=== PATIENT | male | born 1960 | race Caucasian/White ===

== ENCOUNTER 2017-01-16 20:06 | Inpatient (IN) | payer BC ==
[~2017-01-16] VITALS: Ht 180.3 cm; Wt 129.6 kg
--- NOTE | ~2017-01-16 | HEMODYNAMI ---
PATIENT:SHEYLA PARKER MEDICAL RECORD: [id number] : 60 LOCATION[facility] [id number] ADMISSION DATE: 01/16/17 Generatedon:01/19/20179:50 Patient name: SHEYLA PARKER Patient #: [id number] SSN: : 1960 Date of study: 01/19/2017 Page: Of Hemodynamic Procedure Report Patient Data Patient Demographics Procedure consent was obtained First Name: SHEYLA Gender: Male Last Name: KEITH : 1960 Middle Initial: A Age: 56 year(s) Patient #: [id number] Race: Unknown Additional ID: [id number] Contact details [address]: [address] [place] [address] State: [place] City: [place] Zip code: [address] Past Medical History Allergies Allergen Reaction Date Comments Reported Aspirin 01/19/2017 NSAIDs 01/19/2017 Penicillins 01/19/2017 Admission Admission Data Admission Date: 01/16/2017 Admission Time: 22:34 Room #: D.2123 Height (in.): 71 BSA: 2.43 (m2) Height (cm.): 180.34 BMI: 39.05 (kg/m2) Weight (lbs.): 279.99 Weight (kg.): 127 Lab Results Lab Result Date: 01/19/2017 Lab Result Time: 6:30 Biochemistry Name Units Result Min Max CK-MB ng/ml 3.2 --(---*)-- 0 3.6 Troponin l ng/ml 0.017 --(-*--)-- 0 0.06 Procedure Procedure Types Cath Procedure Diagnostic Procedure C [facility] w/Coronaries Miscellaneous Procedures Moderate Sedation up to 15 minutes Procedure Description Procedure Date Procedure Date: 01/19/2017 Procedure Start Time: 9:39 Procedure End Time: 9:47 Procedure Staff Name Function Saran Hale MD Performing Physician Kenji Cruz RT Scrub Tameka Carmichael RN Nurse Scott Marcos RT Monitor Procedure Data Cath Procedure Fluoroscopy Diagnostic fluoroscopy Total fluoroscopy Time: 1.8 time: 1.8 min min Diagnostic fluoroscopy Total fluoroscopy dose: 708 dose: 708 mGy mGy Contrast Material Contrast Material Type Amount (ml) Isovue 300 54 Entry Location Entry Primary Successful Side Size Upsize Upsize Entry Closure [place] ccessful Closure Location (Fr) 1 (Fr) 2 (Fr) Remarks Device Remarks Radial Right 6 Fr Mechanical artery Short Compression Estimated blood loss: 10 ml Diagnostic catheters Device Type Used For End Catheter Placement Diagnostic Terumo 5Fr Procedure [place] 110cm catheter Procedure Complications No complications Procedure Medications Medication Administration Route Dosage Oxygen NC 2 l/min Heparin Flush Bag added to field 2 bags (1000units/500ml NS) Lidocaine 2% added to field 20 Radial Cocktail added to field 1 syringe (Verapomil 2mg/Nitro 400mcg/Heparin 1500units) Versed I.V. 1 mg Fentanyl I.V. 50 mcg Radial Cocktail I.A. 1 syringe (Verapomil 2mg/Nitro 400mcg/Heparin 1500units) Versed I.V. 1 mg Fentanyl I.V. 50 mcg Versed I.V. 1 mg Fentanyl I.V. 50 mcg Versed I.V. 1 mg Fentanyl I.V. 50 mcg Hemodynamics Rest BSA: 2.43 (m2) HGB: 17.7 (g/dl) O2 Consumption: Estimated: 299.92 (ml/min) O2 Co nsumption indexed: Estimated:123.42 (ml/min/m) Heart Rate: 84 (bpm) Pressure Samples Time Site Value (mmHg) Purpose Heart Use Rate(bpm) 9:42 AO 108/89(99) Snapshot 90 Snapshots Pre Cath Intra NCS Post Cath Vital Signs Time Heart Resp SPO2 NIBP (mmHg) Rhythm Pain Sedation Rate (ipm) (%) Status Level (bpm) 9:20:28 95 14 98 144/97(126) NSR 0 (11) 10(A) , No pain 9:24:48 95 18 98 139/105(116) NSR 0 (11) 10(A) , No pain 9:29:06 92 18 95 129/99(119) NSR 0 (11) 10(A) , No pain 9:33:20 90 19 99 127/92(114) NSR 0 (11) 10(A) , No pain 9:37:39 90 19 98 144/81(127) NSR 0 (11) 10(A) , No pain 9:42:37 102 11 98 Measuring NSR 0 (11) 10(A) , No pain 9:42:52 90 22 97 111/76(87) NSR 0 (11) 10(A) , No pain 9:46:58 91 18 89 116/95(100) NSR 0 (11) 10(A) , No pain Medications Time Medication Route Dose Verified Delivered Reason Notes E ffectiveness by by 9:21:42 Oxygen NC 2 l/min Saran Tameka Per eGoffrey Carmichael RN physician 9:21:50 Heparin Flush added 2 bags Saran Noonan used for Bag to Geoffrey Hale MD procedure (1000units/500ml field NS) 9:21:56 Lidocaine 2% added 20ml Saran Saran used for to vial Geoffrey Hale MD procedure field 9:22:04 Radial Cocktail added 1 Saran Saran used for (Verapomil to syringe Geoffrey Hale MD procedure 2mg/Nitro field 400mcg/Heparin 1500units) 9:38:03 Versed I.V. 1 mg Saran Tameka for sedation Geoffrey Carmichael RN 9:38:08 Fentanyl I.V. 50 mcg Saran Tameka for sedation Geoffrey Carmichael RN 9:40:13 Versed I.V. 1 mg Saran Tameka for sedation Geoffrey Carmichael RN 9:40:21 Fentanyl I.V. 50 mcg Saran Tameka for sedation Geoffrey Carmichael RN 9:41:08 Radial Cocktail I.A. 1 Saran Saran for (Verapomil syringe Geoffrey Hale MD vasodilation 2mg/Nitro 400mcg/Heparin 1500units) 9:42:01 Fentanyl I.V. 50 mcg Saran Tameka for sedation Geoffrey Carmichael RN 9:42:01 Versed I.V. 1 mg Saran Tameka for sedation Geoffrey Carmichael RN 9:44:00 Versed I.V. 1 mg Saran Tameka for sedation Geoffrey Carmichael RN 9:44:03 Fentanyl I.V. 50 mcg Saran Tameka for sedation Geoffrey Carmichael RN Procedure Log Time Note 8:45:46 Scott Marcos RT(R) sent for patient. Start room use. 8:53:34 Lab Result : BUN 15 mg/dl 8:53:35 Lab Result : Hemoglobin 17.7 g/dl 8:53:35 Lab Result : Creatinine 1.2 mg/dl 8:54:40 ACC Patient presents with Unstable Angina CCS Anginal Class 3--Marked limitation of physical activity, angina occurs with ordinary activity.. 8:54:44 Diagnostic Cath status Urgent 8:55:11 Time tracking: Regular hours 8:55:19 Plan of Care:Hemodynamics will remain stable., Cardiac rhythm will remain stable., Comfort level will be maintained., Respiratory function will remain adequate., Patient/ family verbilizes understanding of procedure., Procedure tolerated without complication., Recovers from procedure without complications.. 8:55:34 Lab results completed and on chart. 8:57:13 Lab Result : CK-MB 3.2 ng/ml 8:57:13 Lab Result : Troponin l 0.017 ng/ml 9:08:20 Patient received from PCU to [facility] 2 Alert and oriented. Tansferred to table in Supine position. 9:08:21 Warm blankets applied, and galina hugger turned on for patient comfort. 9:08:22 Correct patient and procedure confirmed by team. 9:08:23 Signed procedure consent form obtained from patient. 9:08:24 ECG and BP/O2 sat monitors applied to patient. 9:19:18 Vital chart was started 9:21:42 Oxygen 2 l/min NC was administered by Tameka Carmichael RN; Per physician; 9:21:50 Heparin Flush Bag (1000units/500ml NS) 2 bags added to field was administered by Saran Hale MD; used for procedure; 9:21:56 Lidocaine 2% 20ml vial added to field was administered by Saran Hale MD; used for procedure; 9:22:04 Radial Cocktail (Verapomil 2mg/Nitro 400mcg/Heparin 1500units) 1 syringe added to field was administered by Saran Hale MD; used for procedure; 9:28:41 Baseline sample Acquired. 9:28:46 Rhythm: sinus rhythm 9:28:51 Full Disclosure recording started 9:29:00 H&P Date Dictated: 01/16/2017 Within 30 days and on chart.. 9:29:01 Pre-procedure instructions explained to patient. 9:29:02 Pre-op teaching completed and patient verbalized understanding. 9:29:04 Family in patients room. 9:29:05 Patient NPO since Midnight. 9:29:07 Is the patient allergic to Iodine/contrast media? No. 9:29:12 Is patient on blood thinner?No 9:30:00 Pt was started on Xarelto on Wednesday 01/17, however that it was held due to scheduled heart cath. 9:30:02 Patient diabetic? Yes. 9:30:03 If diabetic: On Metformin? No 9:30:06 Previous problem with sedation/anesthesia? No ? 9:30:07 Snore? Yes 9:30:08 Sleep apnea? Yes 9:30:11 Deviated septum? No 9:30:11 Opens mouth fully? Yes 9:30:12 Sticks out tongue? Yes 9:30:14 Airway obstruction? No ? 9:30:16 Dentures? No ? 9:30:19 Pre procedure: right dorsailis pedis pulse 1+ Palpable, but thready & weak; easily obliterated 9:30:21 Modified Daniel's test Ulnar < 7 seconds 9:30:24 Patient pain scale 0/10 ?. 9:30:47 IV patent on arrival in left forearm with 0.9% NaCl at KVO. 9:31:37 Pt's abdomen was taped back for groin access if needed. 9:31:42 Right Radial & Right Groin area was prepped with chlora-prep and draped in sterile fashion 9:31:43 Alarms reviewed by R. N. 9:31:43 Sharps counted by scrub and verified by R.N. 9:33:28 Zero performed for pressure channel P1 9:34:01 Use device set Radial Dx 9:34:03 Tegaderm 4 x 4 opened to sterile field. 9:34:04 Acist Hand Control opened to sterile field. 9:34:04 Acist Manifold opened to sterile field. 9:34:06 Acist Syringe opened to sterile field. 9:34:06 Medline Cath Pack opened to sterile field. 9:34:06 Bag Decanter opened to sterile field. 9:34:07 Terumo 6Fr Slender Glidesheath opened to sterile field. 9:34:07 St Edy 260cm J .035 wire opened to sterile field. 9:34:08 MBrace Wrist Support opened to sterile field. 9:34:15 Patient Weight : 127 kg 9:34:31 Patient Height : 180.34 cm 9:37:39 --------ALL STOP TIME OUT------ 9:37:40 Final Timeout: patient, procedure, and site verified with staff and physician. All members of the team are in agreement. 9:37:42 Right Radial & Right Groin site verified by team. 9:37:44 Physical assessment completed. ASA score P 2 - A patient with mild systemic disease as per Saran Hale MD. 9:37:47 Sedation plan: IV Moderate Sedation Versed, Fentanyl 9:38:03 Versed 1 mg I.V. was administered by Tameka Carmichael RN; for sedation; :38:08 Fentanyl 50 mcg I.V. was administered by Tameka Carmichael RN; for sedation; 9:39:14 Procedure started. 9:39:18 Local anesthetic to right radial artery with Lidocaine 2% by Saran Hale MD.INITIAL ACCESS ONLY 9:39:42 A 6 Fr Short sheath was inserted into the Right Radial artery 9:40:13 Versed 1 mg I.V. was administered by Tameka Carmichael RN; for sedation; 9:40:21 Fentanyl 50 mcg I.V. was administered by Tameka Carmichael RN; for sedation; 9:41:08 Radial Cocktail (Verapomil 2mg/Nitro 400mcg/Heparin 1500units) 1 syringe I.A. was administered by Saran Hale MD; for vasodilation; 9:41:14 A Diagnostic Terumo 5Fr [place] 110cm catheter was advanced over the wire and used for Procedure. 9:42:01 Fentanyl 50 mcg I.V. was administered by Tameka Carmichael RN; for sedation; 9:42:01 Versed 1 mg I.V. was administered by Tameka Carmichael RN; for sedation; 9:42:05 Patient allergic to Aspirin 9:42:12 Patient allergic to NSAIDs 9:42:17 Patient allergic to Penicillins 9:42:22 LV angiography performed. 9:42:23 LV gram done using FERRERA 9:42:37 EF : 50 % 9:42:40 Injector settings: Ml/sec: 7, Volume: 15, 9:42:51 LCA angiography performed. 9:44:00 Versed 1 mg I.V. was administered by Tameka Carmichael RN; for sedation; 9:44:01 RCA angiography performed. 9:44:03 Fentanyl 50 mcg I.V. was administered by Tameka Carmichael RN; for sedation; 9:44:08 Catheter removed. 9:44:29 Terumo TR Band Large opened to sterile field. 9:44:41 Sheath removed intact; hemostasis achieved with Mechanical Compression to the Right Radial artery. 9:44:45 Procedure ended.(Physican Out) 9:45:14 Fluoroscopy time 01.80 minutes. 9:45:19 Flurop Dose total: 708 9:45:19 Fluoroscopy dose: 708 mGy 9:45:28 Contrast amount:Isovue 300 54ml. 9:45:30 Sharps counted by scrub and verified by R.N. 9:45:32 TR band inflated with 12cc of air. 9:45:33 Insertion/operative site no bleeding no hematoma. 9:45:35 Post Procedure Pulses reassessed and unchanged 9:45:37 Post-procedure physical assessment completed. ASA score P 2 - A patient with mild systemic disease as per Saran Hale MD. 9:45:40 Post procedure rhythm: unchanged. 9:45:42 Estimated blood loss: 10 ml 9:45:44 Post procedure instruction explained to patient.Patient verbalizes understanding. 9:45:44 Patient needs reinforcement of post procedure teaching. 9:45:52 Procedure type changed to Cath procedure, Diagnostic procedure, LHC, LHC w/Coronaries, Miscellaneous Procedures, Moderate Sedation up to 15 minutes 9:45:56 Procedure Complication : No complications 9:46:15 Procedure and supply charges have been captured, reviewed, submitted and are correct. 9:47:31 Vital chart was stopped 9:47:31 See physician's report for complete and final results. 9:47:33 Report given to PCU. 9:47:36 Patient transfered to PCU with Bed. 9:47:38 Procedure ended. 9:47:38 Full Disclosure recording stopped 9:50:02 End room use (Document Last) Device Usage Item Name Manufacture Quantity Catalog Hospital Part Current Minimal Lot# / Number Charge Number Stock Stock Serial# Code Tegaderm 4 1 [id number] 5 x 4 Acist Hand Acist 1 24845 358767 823040 116374 5 Control [employer] Inc Acist Acist 1 74696 665970 298007 141340 5 Manifold Medical Systems Inc Acist Acist 1 66370 234884 073712 994153 20 Syringe Medical Systems Inc Medline Cardinal 1 [id number] 706679 16779 466496 5 Cath Pack Health Bag Microtek 1 2002S 902109 27232 520364 5 Decanter Medical Inc. Terumo 6Fr Terumo 1 [id number] 558679 923356 550562 [address] St Edy 1 275103 453824 698306 767428 30 260cm J .035 wire MBrace Advanced 1 [id number] 255645 47474 768462 5 Wrist Vascular Support Dynamics Diagnostic Terumo 1 00-7059 472409 732775 339148 5 Terumo 5Fr [place] 110cm catheter Terumo TR Terumo 1 [id number] 441426 597470 961082 40 Band Large Signature Audit Lamoni Stage Time Signature Unsigned Intra-Procedure 01/19/2017 Scott Marcos 9:50:21 AM RT(R) Signatures Monitor : Scott Marcos RT Signature : Date : Time : [facility] [address] [place] [address]
[2017-01-16 21:01] LABS: BASOPHILS 0.4 % (0-2); EOSINOPHILS 3.8 % (0-7); HEMATOCRIT 53.5 % (42.0-54.0); HEMOGLOBIN 18.7 g/dL (13.5-17.5); IMMATURE GRANULOCYTES 0.5 % (0-5); LYMPHOCYTES 20.4 % (15-50); MCH 30.6 pg (26.0-34.0); MCV 87.4 fL (80.0-100.0); MONOCYTES 11.9 % (2-11); PLATELET COUNT 273 10x3/uL (130-400); RBC 6.12 10x6/uL (4.20-6.10); RDW 14.5 % (11.5-14.5); WBC 12.7 10x3/uL (4.8-10.8)
[2017-01-16 21:11] LABS: APTT 34.9 SECONDS (22.8-39.4); INR 1.02 (0.85-1.17); PROTIME 13.2 SECONDS (11.6-15.0)
[2017-01-16 21:17] LABS: ALBUMIN 3.8 g/dL (3.4-5.0); ALKALINE PHOSPHATASE 61 U/L (46-116); ALT (SGPT) 40 U/L (10-68); BILIRUBIN - TOTAL 0.73 mg/dL (0.2-1.3); CALC OSMOLALITY 281 mosm/kg (275-300); CALCIUM 9.1 mg/dL (8.5-10.1); CARBON DIOXIDE 29.1 mmol/L (21.0-32.0); CHLORIDE - SERUM 103 mmol/L (98-107); CREATININE - SERUM 1.2 mg/dL (0.6-1.3); GLUCOSE 84 mg/dL (74-106); POTASSIUM - SERUM 3.7 mmol/L (3.5-5.1); PROTEIN - SERUM 7.2 g/dL (6.4-8.2); SODIUM 142 mmol/L (136-145); UREA NITROGEN 12 mg/dL (7-18); eGFR NON AFRICAN AMERICAN 66 mL/min (90-120)
[2017-01-16 21:28] LABS: CKMB 7.6 U/L (0.0-3.6); CREATINE KINASE 287 UL (21-232); TROPONIN-I < 0.017 ng/mL (0.000-0.060)
[2017-01-16] MEDS ORDERED: BENICAR HCT 40-1 TA1 PO (23:32)
[2017-01-16] MEDS ORDERED: TOPROL XL100 MG PO (23:32)
[2017-01-16] MEDS ORDERED: ZETIA10 MG PO (23:33)
[2017-01-16 23:35] VITALS: BP 136/92; Ht 180.3 cm; Wt 129.6 kg
--- NOTE | 2017-01-16 23:58 | NUR ---
ASSESSMENT COMPLETE WITH TELEMETRY APPLIED READING OF UCAF AT 153. SECOND IV STARTED TO THE LEFT HAND WITH 20 GA FOR IV ANTIOBIOTICS. CARDIZAM CONTINUES TO INFUSE AT 10 CC/HR TO IV IN THE L/ARM
[2017-01-17] VITALS (7 sets, daily range): BP systolic 108–136; BP diastolic 56–92
--- NOTE | 2017-01-17 00:14 | NUR ---
0014 NOTIFIED OFFICE MACHINERY OR EQUIPMENT INSTALLER OF NEED TO PULL MEDICATION OF LOVENOX AND ROCEPHIN. ALLERGY NOTED TO PCN. HOUSE SUP TO GO BACK TO ER AND VERIFY WITH DOCTOR
[2017-01-17 02:29] LABS: APPEARANCE CLEAR (CLEAR); BILIRUBIN NEGATIVE (NEGATIVE); COLOR DK YELLOW (YELLOW); GLUCOSE NEGATIVE (NEGATIVE); KETONE NEGATIVE (NEGATIVE); LEUKOCYTE ESTERASE NEGATIVE (NEGATIVE); NITRITE NEGATIVE (NEGATIVE); PROTEIN NEGATIVE (NEGATIVE); SPECIFIC GRAVITY 1.025 (1.005-1.020); UROBILINOGEN NORMAL (NORMAL)
--- NOTE | 2017-01-17 02:34 | NUR ---
NOTIFIED BY RECREATION ATTENDANT THE ER DOCTOR STATED HOLD THE ROCHEPHIN DUE TO ALLERGY
[2017-01-17 04:35] LABS: BASOPHILS 0.4 % (0-2); EOSINOPHILS 4.3 % (0-7); HEMATOCRIT 50.6 % (42.0-54.0); HEMOGLOBIN 17.7 g/dL (13.5-17.5); IMMATURE GRANULOCYTES 0.4 % (0-5); LYMPHOCYTES 21.8 % (15-50); MCH 30.5 pg (26.0-34.0); MCV 87.1 fL (80.0-100.0); MEAN PLATELET VOLUME 9.6 fL (7.4-10.4); MONOCYTES 11.1 % (2-11); PLATELET COUNT 258 10x3/uL (130-400); RBC 5.81 10x6/uL (4.20-6.10); RDW 14.4 % (11.5-14.5); WBC 11.4 10x3/uL (4.8-10.8)
[2017-01-17 05:08] LABS: CALC OSMOLALITY 277 mosm/kg (275-300); CALCIUM 8.6 mg/dL (8.5-10.1); CARBON DIOXIDE 26.3 mmol/L (21.0-32.0); CHLORIDE - SERUM 104 mmol/L (98-107); CREATINE KINASE 196 UL (21-232); CREATININE - SERUM 1.1 mg/dL (0.6-1.3); GLUCOSE 96 mg/dL (74-106); POTASSIUM - SERUM 3.5 mmol/L (3.5-5.1); SODIUM 139 mmol/L (136-145); UREA NITROGEN 13 mg/dL (7-18); eGFR NON AFRICAN AMERICAN 73 mL/min (90-120)
[2017-01-17 05:13] LABS: TROPONIN-I < 0.017 ng/mL (0.000-0.060)
--- NOTE | 2017-01-17 10:08 | NUR ---
TELEMETRY CAF. IV PATENT. AT BS. WILL CONT. PLAN OF CARE.
--- NOTE | 2017-01-17 13:29 | NUR ---
UP AMBULATING HALLWAY WITH .
--- NOTE | 2017-01-17 15:23 | HP ---
PATIENT: SHEYLA PARKER MEDICAL RECORD: [id number] ACCOUNT: [id number] LOCATION:[address] : 60 ADMISSION DATE: 01/16/17 HISTORY AND PHYSICAL EXAMINATION Admission History and Physical HISTORY OF PRESENT ILLNESS: A 56-year-old male, who presented to the Emergency Room with rapid irregular heartbeat, chest pressure, shortness of breath. PAST MEDICAL HISTORY: Significant for hypertension greater than 10 years, obesity and he has a history of obstructive sleep apnea, moderate to severe, untreated. He state he was intolerant of CPAP due to the high pressures that had him on. ALLERGIES: LISTED NSAIDs, PENICILLIN AND ASPIRIN. CURRENT MEDICATIONS: Listed as metoprolol 100 mg daily, Benicar hydrochlorothiazide, Zetia. FAMILY HISTORY: Noncontributory. REVIEW OF SYSTEMS: GENERAL: No acute change in weight or appetite. HEENT: No cephalgia, visual changes, tinnitus, epistaxis or dysphagia. CARDIOVASCULAR: Rapid irregular heartbeat with chest heaviness, shortness of breath. PULMONARY: Denies hemoptysis, denies night sweats. Does admit a history of moderate to severe obstructive sleep apnea, no treatment. GASTROINTESTINAL: Denies hematemesis, hematochezia or melena. GENITOURINARY: Denies dysuria, denies change in frequency. MUSCULOSKELETAL: No acute changes. PHYSICAL EXAMINATION: VITAL SIGNS: Temperature 97.9, blood pressure of 121/72, heart rate 90, respirations 17, O2 sats 94% on 2 liters via nasal cannula. GENERAL: Alert and oriented, no present distress. Does still admits chest heaviness, pressure. HEENT: Normocephalic and atraumatic. Eyes: Pupils are equally round and reactive. Ears: Canals patent, TMs are intact. Nose: Nares patent without drainage. Throat: No erythema, no exudates. NECK: Supple. No lymphadenopathy, no JVD. HEART: Irregularly irregular. LUNGS: Clear to auscultation bilaterally. Breathing is nonlabored. ABDOMEN: Soft, obese, and nontender. Bowel sounds all 4 quadrants. EXTREMITIES: Present times 4, no edema. NEUROLOGIC: No focal deficits. SKIN: Warm and dry. No rash. DIAGNOSTIC DATA: EKG on admission showed AFib with rapid ventricular response, vent rate of 135. PLAN: Acute onset atrial fibrillation with RVR; obstructive sleep apnea, untreated; hypertension. The patient is admitted as unassigned medicine. His HISTORY AND PHYSICAL [id number] SHEYLA PARKER primary care physician is in [place]. Cardiology consult ____ has been started on Xarelto, sotalol, heart rate presently controlled. We will check a thyroid profile, also we counseled the patient on the importance of treatment of his underlying sleep apnea as this may be a contributing factor. Echocardiogram is pending. TRANSINT:[id number] Voice Confirmation ID: [id number] DOCUMENT ID: [id number] PEPE CHESTER DO at 1523 CC: [id number] DICTATION DATE: 01/17/17 1250 VICE PRESIDENT PHARMACY: 01/17/17 1330 ADM IN [place] [id number] [place] [id number]
--- NOTE | 2017-01-17 19:00 | NUR ---
INITIAL ROUNDS MADE. PT SITTING UP IN BED WITH FAMILY IN ROOM. CARDIZEM GTT INFUSING AT 10 CC/HR. DENIES NEEDS OR C/O AT THIS TIME. CALL LIGHT IN REACH. WILL CONT TO MONITOR.
--- NOTE | 2017-01-18 00:30 | NUR ---
PROGRAM DIRECTOR/TRAFFIC DIRECTOR AT BEDSIDE FOR VS. NEEDS ADDRESSED AT THIS TIME. CALL LIGHT IN REACH. WILL CONT TO MONITOR.
[2017-01-18 03:48] VITALS: BP 103/64
[2017-01-18 05:33] LABS: CALC OSMOLALITY 276 mosm/kg (275-300); CALCIUM 8.5 mg/dL (8.5-10.1); CARBON DIOXIDE 30.9 mmol/L (21.0-32.0); CHLORIDE - SERUM 103 mmol/L (98-107); CKMB 3.2 U/L (0.0-3.6); CREATININE - SERUM 1.2 mg/dL (0.6-1.3); GLUCOSE 107 mg/dL (74-106); PHOSPHOROUS 4.3 mg/dL (2.5-4.9); POTASSIUM - SERUM 3.6 mmol/L (3.5-5.1); SODIUM 138 mmol/L (136-145); T4 THYROXIN - FREE 0.83 ng/dL (0.76-1.46); THYROID STIMULATING HORMONE 2.26 uIU/mL (0.36-3.74); TROPONIN-I < 0.017 ng/mL (0.000-0.060); UREA NITROGEN 15 mg/dL (7-18); eGFR NON AFRICAN AMERICAN 66 mL/min (90-120)
--- NOTE | 2017-01-18 06:30 | NUR ---
RESTING WELL WITH EYES CLOSED, CONT TO MONITOR.
--- NOTE | 2017-01-18 07:15 | NUR ---
RESTING QUIETLY EYES CLOSED RESP UNLABORED NAD NOTED
[2017-01-18 08:19] VITALS: BP 110/68
--- NOTE | 2017-01-18 10:15 | NUR ---
ASSESSMENT DONE. TELEMERTY SHOWS CAF AT 67. LEFT HAND IV WITH A CARDIZEM DRIP. DENIES ANY NEEDS. AT BEDSIDE. SR UP WITH CALL LIGHT IN REACH. WILL MONITOR.
--- NOTE | 2017-01-18 10:18 | NUR ---
KEN SINGER. FOR CATH TOMORROW
[2017-01-18 11:52] VITALS: BP 130/71
--- NOTE | 2017-01-18 13:39 | CN ---
PATIENT NAME:SHEYLA PARKER MEDICAL RECORD: [id number] : 60 LOCATION:. D.2123 ADMIT DATE: 01/16/17 ACCOUNT: [id number] CONSULTING PHYSICIAN: CINDY VENTURA MD REFERRING PHYSICIAN: PEPE CHESTER DO DATE OF CONSULTATION: 01/17/2017 Cardiology Consultation HISTORY OF PRESENT ILLNESS: A 56-year-old gentleman with a remote history of irregular heartbeat. He reports he never been diagnosed with atrial fibrillation in the past, been feeling bad since and Tuesday, presented to the ER, was found to be febrile with temperature to 101 as well as atrial fibrillation with RVR. He has noticed more dyspnea since that time. He has a history of hypertension and dyslipidemia; hypertension is somewhat difficult to control in combination of beta blockade. We are asked to see him concerning cardiovascular status. PAST MEDICAL HISTORY: Includes: 1. History of hypertension. 2. Dyslipidemia. 3. Schatzki's ring. ALLERGIES: NONSTEROIDALS, PENICILLIN. MEDICATIONS: Typically include Zetia 10 mg p.o. q. day, metoprolol 100 b.i.d., Benicar 40/25 q. day; previously on aspirin daily, off this for scheduled EGD. SOCIAL HISTORY: , lives [place] to [place]. He is a nonsmoker. PHYSICAL EXAMINATION: GENERAL: Pleasant gentleman, in ____ acute distress. VITAL SIGNS: Blood pressure 121/72, pulse of 90 and irregular. HEENT: Normocephalic and atraumatic. NECK: No bruits are noted. HEART: Irregular, rates about 90. There is II/ systolic ejection murmur. LUNGS: Fair air excursion. ABDOMEN: Soft and nontender. EXTREMITIES: Pulses 2+. No edema. DIAGNOSTIC DATA: ECG shows atrial fibrillation, controlled response at this point. IMPRESSION: Atrial fibrillation could be related to current underlying febrile illness; however, given 48 hours duration, JUDE score with hypertension, etc, would go ahead and start NOAC at this point, Betapace for hopefully cardioversion and check echocardiographic study. TRANSINT:[id number] Voice Confirmation ID: [id number] DOCUMENT ID: [id number] CONSULT REPORT [id number] KEITHSHEYLA JACINTO CINDY VENTURA MD at 5762 CC: [id number] DICTATION DATE: 01/17/17 0923 SOLUTIONS EXECUTIVE CL[employer]D SALES: 01/17/17 1026 ADM IN [facility] [address] [place] [id number]
[2017-01-18 16:05] VITALS: BP 108/81
--- NOTE | 2017-01-18 17:41 | NUR ---
UP IN BEDSIDE CHAIR. TELEMERTY SHOWS CAF AT 75. FAMILY AT BEDSIDE. WILL MONITOR
--- NOTE | 2017-01-18 19:00 | NUR ---
INITIAL ROUNDS MADE. PT SITTING UP IN BED WITH FAMILY AT BEDSIDE. DENIES NEEDS OR C/O AT THIS TIME. CALL LIGHT IN REACH. WILL CONT TO MONITOR.
[2017-01-18 20:12] VITALS: BP 144/94
--- NOTE | 2017-01-18 20:30 | NUR ---
INVENTORY TRANSCRIBER REPORTS PT CONVERTED TO SR 98.
[2017-01-18 23:40] VITALS: BP 132/94
[2017-01-19 03:31] VITALS: BP 117/82
--- NOTE | 2017-01-19 04:00 | NUR ---
COMPUTER SYSTEMS SOFTWARE ENGINEER AT BEDSIDE FOR VS. NEEDS ADDRESSED AT THIS TIME. CALL LIGHT IN REACH. WILL CONT TO MONITOR.
--- NOTE | 2017-01-19 07:14 | NUR ---
PT LAYING TO R SIDE SLEEPING. AT BEDSIDE. ARROUSES EASILY, DENEIS NEEDS WILL CONT TO MONITOR
--- NOTE | 2017-01-19 07:59 | NUR ---
CONSENTS ARE ON THE CHART FOR HEART CATH TODAY. THEY HAVE ALREADY BEEN SIGNED
[2017-01-19 08:00] VITALS: BP 139/86
[2017-01-19 09:24] LABS: CREATINE KINASE 111 UL (21-232)
--- NOTE | 2017-01-19 10:10 | NUR ---
PT BACK FROM HOME ENERGY RATER VS ARE WNL. R WRIST SITE IS WNL. PT IS LETHARGIC BUT ARROUSES EASILY FAMILY AT BEDSIDE. WILL CONT TO MONITOR
[2017-01-19] MEDS ORDERED: HCTZ25 MG PO (10:37)
[2017-01-19] MEDS ORDERED: BETAPACE 120 M120 MG PO (10:37)
--- NOTE | 2017-01-19 10:58 | NUR ---
Patient Name: SHEYLA PARKER Admission Status: ER Accout number: [id number] Admission Date: 01-16-2017 : 1960 Admission Diagnosis:CHEST PAIN, UNSPECIFIED Attending: VANIA Current LOS: 3 Anticipated DC Date: 01-19-2017 Planned Disposition: Home Primary Insurance[facility] [employer] [facility] Discharge Planning Comments: * Is the patient Alert and Oriented? Yes 0 * How many steps to enter\exit or inside your home? 3 0 * PCP DR. STINSON IN [place] 0 * Pharmacy [facility] IN [place] 0 * Preadmission Environment Home with Family 0 * ADLs Independent 0 * Equipment CPAP 0 * Other Equipment [facility] - MEDICAL EQUIPMENT PROVIDER PREFERENCE 0 * List name and contact numbers for known caregivers / representatives who currently or will assist patient after discharge: ROMAN PARKER, SPOUSE, 0 * Community resources currently utilized None 0 * Please name any agencies selected above. NONE 0 * Additional services required to return to the preadmission environment? No 0 * Can the patient safely return to the preadmission environment? Yes 0 * Has this patient been hospitalized within the prior 30 days at any hospital? No 0 CM MET WITH PT AND SPOUSE IN ROOM TO DISCUSS DISCHARGE PLANNING AND NEEDS. PT REPORTS LIVING AT HOME INDEPENDENTLY WITH SPOUSE. [facility]. PT HAS NO OUTSIDE SERVICES ASSISTING IN THE HOME. CM DISCUSSED AVAILABILITY OF HOME HEALTH, REHAB SERVICES AND MEDICAL EQUIPMENT. PT DENIES DISCHARGE NEEDS, REPORTS HIS SPOUSE IS HERE TO [facility] [employer]OR FOR DISCHARGE HOME TODAY. Plant Ecologist: Pavel Nugent
--- NOTE | 2017-01-19 11:08 | NUR ---
PT STILL SITTING UP IN BED ALERT AND ORIENTED VS ARE WNL. R WRIST TR BAND STILL WNL. RELEASED 4 CC OF AIR FROM TR BAND PER PROTOCOL. NO BLEEDING, WILL CONT TO MONITOR
--- NOTE | 2017-01-19 11:31 | EC ---
PATIENT:SHEYLA PARKER DATE OF SERVICE: 01/16/17 SEX: M MEDICAL RECORD: [id number] DATE OF : 60 LOCATION:D.M2 D.212 AGE OF PATIENT: 56 ADMISSION DATE: 01/16/17 REFERRING PHYSICIAN: INTERPRETING PHYSICIAN: KANG HALE MD ECHOCARDIOGRAM REPORT ECHO CHARGES 4 ECHO COMPLETE CLINICAL DIAGNOSIS: A-FIB ECHOCARDIOGRAPHIC MEASUREMENTS (adult normal given) AC root (d.<3.7cm) 4.7 LV Septum d (<1.2 cm> 1.6 Valve Excursion 2.1 LV Septum (systole) 2.1 Left Atria (s.<4.0cm> 3.5 LVPW d(<1.2cm) 1.5 RV (d.<2.3cm) 2.9 LVPW (sytole) 2.2 LV diastole(<5.6CM) 5.0 MV E-F(>70mm/sec) LV systole 3.1 LVOT Diameter 2.1 MV exc.(>10mm) Est.ejection fraction (50-75%) Pericardial Effusion N DOPPLER: LVIT A E 113 LA RVSP 32.2 LVOT 112 AOP1/2T Asc. Ao 110 RVOT 79.0 RA PA 86.0 AV Gradient Peak 4.9 AV Mean 2.7 AV Area 3.7 MV Gradient Peak 5.9 MV Mean 2.5 MV Area COMMENTS: Peripheral Equipment Operator: Sarahi GONZALEZOE Trade Clerk:1 Dr. Hale TAPE# PACS DATE OF SERVICE: 01/17/2017 Echocardiogram FINDINGS: 1. Left ventricle chamber size is within normal limits. Left ventricular systolic function is normal. Overall ejection fraction estimated at 55%. 2. Left atrium, right atrium, and right ventricle chamber sizes are within normal limits. 3. Valvular structures have normal structure and motion. ECHOCARDIOGRAM REPORT [id number] SHEYLA PARKER 4. Doppler interrogation only reveals trace mitral regurgitation. No other valvular insufficiency or stenosis. 5. No evidence of pericardial effusion or left ventricular thrombus. TRANSINT:[id number] Voice Confirmation ID: [id number] DOCUMENT ID: [id number] KANG HALE MD at 1137 CC: [id number] DICTATION DATE: 01/18/17 124 LOAD OUT PERSON: 01/18/17 8403 ADM IN [facility] [address] [id number]
--- NOTE | 2017-01-19 11:31 | OP ---
PATIENT NAME: SHEYLA PARKER MEDICAL RECORD: [id number] :60 LOCATION:D.M2 D.2123 ADMISSION DATE:01/16/17 SURGEON: KANG CARVALHO MD DATE OF OPERATION: 01/19/2017 PROCEDURES: 1. Left heart catheterization. 2. Selective coronary angiography. 3. Left ventriculogram. INDICATION: Angina, atrial fibrillation, abnormal ECG. PROCEDURE: After informed consent was obtained and after detailed explanation of risks, benefits as well as alternative therapies, the patient elected to proceed with angiogram. The right radial area was prepped and draped in normal sterile fashion. The right radial artery was cannulated via modified Seldinger technique with placement of 5-Croatian sheath. All catheters exchanged through this sheath. FINDINGS: Left ventriculogram was performed in the standard 30-degree FERRERA view reveals good cardiac wall motion throughout all segments. Overall ejection fraction estimated 60%. SELECTIVE CORONARY ANGIOGRAPHY: 1. Left main showed no significant angiographic disease. 2. Left anterior descending has no significant angiographic disease. 3. Left circumflex is with no significant angiographic disease. 4. Right coronary is with no significant angiographic disease. OVERALL IMPRESSION: 1. No angiographic evidence of coronary artery disease. 2. Normal left ventricular systolic function. Symptomatology is secondary to the dysrhythmia. Center treatment on medical management of the dysrythmia. TRANSINT:[id number] Voice Confirmation ID: [id number] DOCUMENT ID: [id number] KANG CARVALHO MD at 1131 CC: [id number] DICTATION DATE: 01/19/17 0957 PILE DRIVING SUPERINTENDENT: 01/19/17 1056 [place] [address]
--- NOTE | 2017-01-19 11:32 | NUR ---
PT STILL AWAKE AND ALERT VS ARE STILL WNL R WRIST STILL WNL NO BLEEDING. REMOVED REMAINING AMOUNT OF AIR FROM TR BAND 9 CC TOTAL REMOVED. NO BLEEDING NOTED. FAMILY AT BEDSIDE WILL CONT TO MONITOR
[2017-01-19 12:03] VITALS: BP 124/93
--- NOTE | 2017-01-19 12:43 | NUR ---
WENT OVER DC PAPERWORK WITH PT AND PT , BOTH VERBALIZE UNDERSTANDING. DC PIV WITH CATHETER TIP INTACT. DC TELE AND RETURNED TO PEARL GLUE OPERATOR. PT REQUESTED THAT HIS SCRIPT FOR SOTOLOL BE CALLED INTO [facility] IN [place] VS PAPER SCRIPT PROVIDED. CALLED INTO [facility] IN [place] SPOKE WITH MARY ANN ZIEGLER. ORIGINAL SCRIPT ON PT CHART. PT IS FINISHING LUNCH AND WILL CALL WHEN DRESSED AND READY TO DC HOME.
--- NOTE | 2017-01-19 13:32 | NUR ---
PT WAS WHEELED OUT TO FRONT ENTRANCE VIA VOLUNTEER
--- NOTE | 2017-01-20 13:29 | DS ---
PATIENT:SHEYLA PARKER :60 MEDICAL RECORD: [id number] DISCHARGE SUMMARY ADMISSION DATE: 01/16/17 DISCHARGE DATE: 01/19/17 DISCHARGE DIAGNOSES: 1. Atrial fibrillation. 2. Hypertension. HOSPITAL COURSE: This is a gentleman who presents with atrial fibrillation, started pharmacotherapy with sotalol, converted to sinus rhythm, underwent cardiac catheterization revealing no significant disease. He was discharged home with the addition of sotalol 80 mg b.i.d. to his medical regimen. He will follow up with [facility] in 1 month. TRANSINT:[id number] Voice Confirmation ID: [id number] DOCUMENT ID: [id number] KANG CARVALHO MD at 1329 CC: [id number] DICTATION DATE: 01/19/1758 MASTER WELDER: 01/20/17 0251 DIS IN 01/19/[address] [address]
== END 2017-01-19 13:32 | disposition home or self-care (01) | DRG 287 ==
LOC: D.ER 20:06 → D.M2 22:34
PROVIDERS: Family Medicine; Internal Medicine Interventional Cardiology; ADMIT Family Medicine
PROC: B2151ZZ Fluoroscopy of Left Heart using Low Osmolar Contrast (ICD-10-PCS; 2017-01-19)
PROC: 4A023N7 Measurement of Cardiac Sampling and Pressure, Left Heart, Percutaneous Approach (ICD-10-PCS; 2017-01-19)
PROC: B2111ZZ Fluoroscopy of Multiple Coronary Arteries using Low Osmolar Contrast (ICD-10-PCS; principal; 2017-01-19 07:30)
DX: I48.91 Unspecified atrial fibrillation (principal); E66.9 Obesity, unspecified; G47.33 Obstructive sleep apnea (adult) (pediatric); I10 Essential (primary) hypertension; Z68.39 Body mass index [BMI] 39.0-39.9, adult; R94.31 Abnormal electrocardiogram [ECG] [EKG]

== ENCOUNTER 2019-04-06 14:24 | Inpatient (IN) | payer BC ==
[~2019-04-06] VITALS: Ht 180.3 cm; Wt 130.6 kg
[~2019-04-06 14:24] MED LIST: BENICAR HCT 40-1 TA1 PO; BETAPACE 120 M120 MG PO; HCTZ25 MG PO; TOPROL XL100 MG PO; ZETIA10 MG PO
[2019-04-06] MEDS ORDERED: COZAAR100 MG PO (14:35)
[2019-04-06] MEDS ORDERED: REVATIO20 MG PO (14:36)
[2019-04-06] MEDS ORDERED: ANDROGEL5 GM IM (14:36)
[2019-04-06 16:13] LABS: BASOPHILS 0.2 % (0-2); EOSINOPHILS 2.3 % (0-7); HEMATOCRIT 52.7 % (42.0-54.0); HEMOGLOBIN 19.2 g/dL (13.5-17.5); IMMATURE GRANULOCYTES 0.2 % (0-5); LYMPHOCYTES 16.3 % (15-50); MCHC 36.4 g/dL (31.0-37.0); MCV 87.8 fL (80.0-100.0); MEAN PLATELET VOLUME 9.7 fL (7.4-10.4); MONOCYTES 9.7 % (2-11); NEUTROPHILS 71.3 % (40-80); RDW 14.1 % (11.5-14.5); WBC 12.1 10x3/uL (4.8-10.8)
[2019-04-06 16:14] LABS: PLATELET COUNT 201 10x3/uL (130-400)
[2019-04-06 16:31] LABS: ALBUMIN 3.8 g/dL (3.4-5.0); BILIRUBIN - TOTAL 1.45 mg/dL (0.2-1.3); CALCIUM 8.7 mg/dL (8.5-10.1); CARBON DIOXIDE 26.7 mmol/L (21.0-32.0); CREATININE - SERUM 1.1 mg/dL (0.6-1.3); POTASSIUM - SERUM 3.7 mmol/L (3.5-5.1); PROTEIN - SERUM 7.4 g/dL (6.4-8.2)
[2019-04-06 16:55] LABS: APPEARANCE CLEAR (CLEAR); BILIRUBIN NEGATIVE (NEGATIVE); COLOR YELLOW (YELLOW); GLUCOSE NEGATIVE (NEGATIVE); KETONE MODERATE mg/dL (NEGATIVE); NITRITE NEGATIVE (NEGATIVE); PROTEIN TRACE mg/dL (NEGATIVE); UROBILINOGEN NORMAL (NORMAL)
[2019-04-07] VITALS: BP 149/109
[2019-04-07] MEDS ORDERED: DILTIAZEM 24HR240 M4 PO (00:09)
[2019-04-07] MEDS ORDERED: L-ARGININE500 MG PO (00:11)
[2019-04-07] MEDS ORDERED: ASCORBIC ACID500 MG PO (00:12)
[2019-04-07] MEDS ORDERED: GALZIN50 MG PO (00:12)
[2019-04-07] MEDS ORDERED: CO Q-10100 MG PO (00:13)
[2019-04-07] MEDS ORDERED: KRILL OIL 1,001 EAC1 PO (00:13)
[2019-04-07] MEDS ORDERED: MULTI-DAY VITAM1 TAB PO (00:14)
[2019-04-07 01:19] VITALS: BP 149/109; BMI 40.5
[2019-04-07 04:00] VITALS: BP 153/109
[2019-04-07 06:47] LABS: BASOPHILS 0.4 % (0-2); HEMATOCRIT 50.4 % (42.0-54.0); HEMOGLOBIN 18.4 g/dL (13.5-17.5); IMMATURE GRANULOCYTES 0.5 % (0-5); LYMPHOCYTES 19.2 % (15-50); MCH 32.2 pg (26.0-34.0); MCHC 36.5 g/dL (31.0-37.0); MCV 88.3 fL (80.0-100.0); MEAN PLATELET VOLUME 10.2 fL (7.4-10.4); MONOCYTES 9.9 % (2-11); PLATELET COUNT 211 10x3/uL (130-400); RBC 5.71 10x6/uL (4.20-6.10); RDW 14.2 % (11.5-14.5); WBC 9.5 10x3/uL (4.8-10.8)
[2019-04-07 07:12] LABS: CALC OSMOLALITY 283 mosm/kg (275-300); CALCIUM 8.1 mg/dL (8.5-10.1); CARBON DIOXIDE 25.2 mmol/L (21.0-32.0); CHLORIDE - SERUM 106 mmol/L (98-107); GLUCOSE 111 mg/dL (74-106); MAGNESIUM - SERUM 1.8 mg/dL (1.8-2.4); PHOSPHOROUS 2.9 mg/dL (2.5-4.9); POTASSIUM - SERUM 3.4 mmol/L (3.5-5.1); SODIUM 142 mmol/L (136-145); UREA NITROGEN 13 mg/dL (7-18); eGFR NON AFRICAN AMERICAN 81 mL/min (90-120)
[2019-04-07 11:04] VITALS: Ht 180.3 cm; Wt 130.6 kg
[2019-04-07 12:25] VITALS: BP 173/105
[2019-04-07 16:02] VITALS: BP 142/109
[2019-04-07 20:00] VITALS: BP 158/103
[2019-04-08 05:25] LABS: BASOPHILS 0.3 % (0-2); EOSINOPHILS 2.4 % (0-7); HEMATOCRIT 49.5 % (42.0-54.0); HEMOGLOBIN 17.7 g/dL (13.5-17.5); IMMATURE GRANULOCYTES 0.3 % (0-5); LYMPHOCYTES 12.7 % (15-50); MCH 31.9 pg (26.0-34.0); MCHC 35.8 g/dL (31.0-37.0); MCV 89.2 fL (80.0-100.0); MEAN PLATELET VOLUME 9.9 fL (7.4-10.4); MONOCYTES 10.1 % (2-11); NEUTROPHILS 74.2 % (40-80); PLATELET COUNT 194 10x3/uL (130-400); RBC 5.55 10x6/uL (4.20-6.10); RDW 14.2 % (11.5-14.5); WBC 11.5 10x3/uL (4.8-10.8)
[2019-04-08 05:43] VITALS: BP 141/92
[2019-04-08 05:49] LABS: ANION GAP 15.4 mmol/L (8-16); CALCIUM 8.4 mg/dL (8.5-10.1); CREATININE - SERUM 1.1 mg/dL (0.6-1.3); MAGNESIUM - SERUM 1.9 mg/dL (1.8-2.4); POTASSIUM - SERUM 3.4 mmol/L (3.5-5.1); T4 THYROXIN - FREE 0.93 ng/dL (0.76-1.46); THYROID STIMULATING HORMONE 3.37 uIU/mL (0.36-3.74)
[2019-04-08 07:58] VITALS: BP 157/117
--- NOTE | 2019-04-08 09:24 | CN ---
PATIENT NAME:SHEYLA PARKER MEDICAL RECORD: [id number] : 60 LOCATION:. D.2126 ADMIT DATE: 04/06/19 ACCOUNT: [id number] CONSULTING PHYSICIAN: CINDY VENTURA MD REFERRING PHYSICIAN: JACOB ERNST MD DATE OF CONSULTATION: 04/07/2019 HISTORY OF PRESENT ILLNESS: A 58-year-old gentleman with a known history of atrial fibrillation, on Coumadin for the same has been having occasional breakthrough as he was at home, actually seen Dr. Tovar, discussed possible ablation, admitted with small-bowel obstruction, was found to have atrial fibrillation with RVR, mildly symptomatic from this standpoint with breathlessness, palpitations, etc. Currently, has NG tube p.o., takes p.o. medications obviously. We are asked to see him concerning his cardiovascular status. PAST MEDICAL HISTORY: Includes; 1. History of atrial fibrillation as described above. 2. Dyslipidemia. 3. Hypertension. MEDICATIONS: Include testosterone supplementation 400 mg every 2 weeks, hydrochlorothiazide 25 every day, sotalol 160 b.i.d., losartan 100 mg p.o. daily, Zetia 10 every day, diltiazem 240 every day. ALLERGIES: NONSTEROIDALS, PENICILLIN. SOCIAL HISTORY: He is a nonsmoker and nondrinker. Easily takes care of all his ADLs. No set exercise program. REVIEW OF SYSTEMS: The patient reports easy bruising but reports no swollen glands. The patient reports no fever, no night sweats, no significant weight gain, no significant weight loss. No significant exercise tolerance. The patient reports no dry eyes, no irritation, no vision change. Patient reports no difficulty hearing and no ear pain. Patient reports no frequent nose bleeds or nose and sinus problems. Patient reports on arm pain on exertion. No shortness of breath while lying down. No history of heart murmur. Patient reports no cough, no wheezing or coughing up blood. Patient reports no abdominal pain, no vomiting. Normal appetite. No diarrhea and not vomiting blood. No nausea and no constipation. Patient reports no incontinence. No difficulty urinating. No hematuria. No increased frequency. Patient reports no muscle aches. No weakness, no arthralgias, no back pain. No swelling of the extremities. Patient reports no abnormal mole, no jaundice, no rashes. Reports no loss of consciousness. No weakness and no numbness. No seizures, dizziness, or headaches. The patient reports no depression, no sleep disturbance, feeling safe in a relationship and no alcohol abuse. Patient reports on fatigue. Reports no runny nose or sinus pressure. No itching, no hives, and no frequent sneezing. PHYSICAL EXAMINATION: GENERAL: No acute distress, appears stated age. VITAL SIGNS: Blood pressure 153/109, pulse 112 and irregular. HEENT: Normocephalic, atraumatic. NECK: No bruits are noted. HEART: Irregular, tachycardic, II/ systolic ejection murmur. CONSULT REPORT [id number] SHEYLA PARKER LUNGS: Diminished breath sounds. ABDOMEN: Diminished bowel sounds. No guarding or rebound. EXTREMITIES: Pulses are 2+ with no edema. IMPRESSION: Atrial fibrillation, recurrent, suspect secondary to increased catacholmine drive from current illness as well as inability to take p.o. medications. We will use Cardizem for rate control at this point. Restart oral agents when possible. Reports frequent breakthroughs at home, strong consideration for ablation with Dr. Tovar. TRANSINT:[id number] Voice Confirmation ID: [id number] DOCUMENT ID: [id number] CINDY VENTURA MD at 0924 CC: [id number] DICTATION DATE: 04/07/19 1057 MANAGER SPEECH: 04/07/19 1206 ADM IN [place] [id number] [place] [id number]
[2019-04-08 11:57] VITALS: BP 152/97
[2019-04-08 14:55] VITALS: BP 160/118
[2019-04-08 20:00] VITALS: BP 172/101
[2019-04-09] VITALS: BP 154/101
[2019-04-09 04:00] VITALS: BP 165/96
[2019-04-09 08:26] LABS: BASOPHILS 0.2 % (0-2); EOSINOPHILS 2.5 % (0-7); HEMATOCRIT 48.7 % (42.0-54.0); HEMOGLOBIN 17.7 g/dL (13.5-17.5); IMMATURE GRANULOCYTES 0.3 % (0-5); LYMPHOCYTES 14.3 % (15-50); MCH 31.9 pg (26.0-34.0); MCHC 36.3 g/dL (31.0-37.0); MCV 87.7 fL (80.0-100.0); MEAN PLATELET VOLUME 9.8 fL (7.4-10.4); MONOCYTES 10.7 % (2-11); PLATELET COUNT 209 10x3/uL (130-400); RBC 5.55 10x6/uL (4.20-6.10); WBC 9.9 10x3/uL (4.8-10.8)
[2019-04-09 08:39] VITALS: BP 179/118
[2019-04-09 09:08] LABS: CALC OSMOLALITY 281 mosm/kg (275-300); CALCIUM 8.2 mg/dL (8.5-10.1); CARBON DIOXIDE 25.3 mmol/L (21.0-32.0); CHLORIDE - SERUM 106 mmol/L (98-107); GLUCOSE 120 mg/dL (74-106); POTASSIUM - SERUM 3.3 mmol/L (3.5-5.1); SODIUM 142 mmol/L (136-145); UREA NITROGEN 7 mg/dL (7-18); eGFR NON AFRICAN AMERICAN 81 mL/min (90-120)
[2019-04-09 11:43] VITALS: BP 173/104
--- NOTE | 2019-04-09 14:30 | EC ---
PATIENT:SHEYLA PARKER DATE OF SERVICE: 04/06/19 SEX: M MEDICAL RECORD: [id number] DATE OF : 60 LOCATION:D. D.212 AGE OF PATIENT: 58 ADMISSION DATE: 04/06/19 REFERRING PHYSICIAN: INTERPRETING PHYSICIAN: CINDY VENTURA MD ECHOCARDIOGRAM REPORT ECHO CHARGES 4 ECHO COMPLETE Date: 04/07/19 CLINICAL DIAGNOSIS: AFIB ECHOCARDIOGRAPHIC MEASUREMENTS (adult normal given) AC root (d.<3.7cm) 3.8 cm LV Septum d (<1.2 cm> 0.7 cm Valve Excursion 2.0 cm LV Septum (systole) 1.0 cm Left Atria (s.<4.0cm> 4.5 cm LVPW d(<1.2cm) 1.3 cm RV (d.<2.3cm) 2.9 cm LVPW (sytole) 1.6 cm LV diastole(<5.6CM) 6.0 cm MV E-F(>70mm/sec) cm LV systole 5.1 cm LVOT Diameter 2.1 cm MV exc.(>10mm) cm Est.ejection fraction (50-75%) % DOPPLER: LVIT cm/sec A 25 cm/sec E 57 cm/sec LA cm/sec RVSP 19.2 mmHg LVOT 94 cm/sec AOP1/2T m/s Asc. Ao 112 cm/sec RVOT 73 cm/sec RA cm/sec PA 84 cm/sec AV Gradient Peak 5.0 mmHg AV Mean 3.2 mmHg AV Area 4.0 cm MV Gradient Peak 2.9 mmHg MV Mean 1.2 mmHg MV Area cm COMMENTS: Mail Deliverer: Emiliano MARTÍNEZ Program Schedule Clerk: 3 Dr. Bee TAPE# PACS Pericardial Effusion N DATE OF SERVICE: Adequate 2-D echo, color-flow and spectral Doppler, and M-mode. No LVH. LV internal dimensions are normal. Wall motion is normal. EF is greater than or equal to 55%. Aortic valve is tricuspid. No evidence of stenosis by Doppler interrogation. Left atrium is dilated at 4.5 cm. Mitral valve shows no prolapse. Mild MR. Right-sided chambers are grossly normal. Trace TR. ECHOCARDIOGRAM REPORT [id number] SHEYLA PARKER TRANSINT:[id number] Voice Confirmation ID: [id number] DOCUMENT ID: [id number] CINDY VENTURA MD at 1430 CC: [id number] DICTATION DATE: 04/08/19 1048 TEACHER MUSIC: 04/08/19 1426 ADM IN [facility] [address] [id number]
[2019-04-09 20:00] VITALS: BP 138/103
[2019-04-10 04:00] VITALS: BP 150/99
[2019-04-10 06:29] LABS: BASOPHILS 0.3 % (0-2); HEMATOCRIT 46.8 % (42.0-54.0); HEMOGLOBIN 16.6 g/dL (13.5-17.5); IMMATURE GRANULOCYTES 0.4 % (0-5); LYMPHOCYTES 18.6 % (15-50); MCH 31.6 pg (26.0-34.0); MCHC 35.5 g/dL (31.0-37.0); MCV 89.1 fL (80.0-100.0); MEAN PLATELET VOLUME 9.9 fL (7.4-10.4); MONOCYTES 11.5 % (2-11); NEUTROPHILS 65.2 % (40-80); PLATELET COUNT 187 10x3/uL (130-400); RBC 5.25 10x6/uL (4.20-6.10); RDW 14.4 % (11.5-14.5); WBC 7.8 10x3/uL (4.8-10.8)
[2019-04-10 06:36] LABS: CALC OSMOLALITY 277 mosm/kg (275-300); CALCIUM 7.9 mg/dL (8.5-10.1); CARBON DIOXIDE 25.8 mmol/L (21.0-32.0); CHLORIDE - SERUM 106 mmol/L (98-107); GLUCOSE 107 mg/dL (74-106); POTASSIUM - SERUM 3.2 mmol/L (3.5-5.1); SODIUM 141 mmol/L (136-145); eGFR NON AFRICAN AMERICAN 81 mL/min (90-120)
[2019-04-10 06:38] LABS: UREA NITROGEN 5 mg/dL (7-18)
[2019-04-10 09:20] VITALS: BP 129/83
[2019-04-10 13:35] VITALS: BP 145/101
[2019-04-10 17:42] VITALS: BP 110/65
[2019-04-10 20:00] VITALS: BP 146/97
[2019-04-11 04:00] VITALS: BP 161/100
[2019-04-11 05:45] LABS: CALC OSMOLALITY 277 mosm/kg (275-300); CARBON DIOXIDE 27.6 mmol/L (21.0-32.0); CHLORIDE - SERUM 105 mmol/L (98-107); GLUCOSE 98 mg/dL (74-106); SODIUM 141 mmol/L (136-145); UREA NITROGEN 5 mg/dL (7-18); eGFR NON AFRICAN AMERICAN 81 mL/min (90-120)
[2019-04-11 05:48] LABS: POTASSIUM - SERUM 3.7 mmol/L (3.5-5.1)
[2019-04-11] MEDS ORDERED: ELIQUIS2.5 MG PO (07:31)
--- NOTE | 2019-04-11 16:58 | MORECARE ---
CASE MANAGEMENT DISCHARGE SUMMARY PATIENT: SHEYLA PARKER UNIT: [id number] ADM DATE: 04/06/19 AGE: 58 : 60 SEX: M ROOM/BED: D.6926 AUTHOR: MARCIE,DOC PHYSICIAN: REFERRING PHYSICIAN: JACOB ERNST MD DATE OF SERVICE: 04/11/19 Discharge Plan Patient Name: SHEYLA PARKER Facility: [facility]:[place] : 1960 Planned Disposition: Home Anticipated Discharge Date: 04/11/19 Discharge Date: 04/11/2019 Expected LOS: 5 Initial Reviewer: [email or web address] Initial Review Date: 04/11/2019 Generated: 04/11/19 5:58 pm Comments DCP- Discharge Planning Updated by [email or web address]: Pavel Nugent on 04/11/19 3:[address] Patient Name: SHEYLA PARKER Admission Status: ER Accout number: [id number] Admission Date: 04-06-2019 : 1960 Admission Diagnosis:PARTIAL INTESTINAL OBSTRUCTION, UNSPECIFIED TO CAUSE Attending: JACOB ERNST Current LOS: 5 Anticipated DC Date: 04-11-2019 Planned Disposition: Home Primary Insurance: [employer] [facility] Discharge Planning Comments: CM MET WITH PT IN ROOM TO DISCUSS DISCHARGE PLANNING AND NEEDS. PT REPORTS LIVING AT HOME INDEPENDENTLY WITH SPOUSE. PT HAS CPAP THAT HE DOES NOT USE AND NO MEDICAL EQUIPMENT PROVIDER PREFERENCE. PT HAS NO OUTSIDE SERVICES ASSISTING IN THE HOME. CM DISCUSSED AVAILABILITY OF HOME HEALTH, REHAB SERVICES AND MEDICAL EQUIPMENT. PT DENIES DISCHARGE NEEDS, REPORTS HIS WILL PICK HIM UP FOR DISCHARGE HOME. Arts Therapist: Pavel Nugent DCPIA - Discharge Planning Initial Assessment Updated by [email or web address]: aPvel Nugent on 04/11/19 4:52 pm * Is the patient Alert and Oriented? Yes * How many steps to enter\exit or inside your home? * PCP DR CONDE AT [facility] IN [place] * Pharmacy [facility] IN [place] * Preadmission Environment Home with Family * ADLs Independent * Equipment CPAP * Other Equipment PT DOES NOT USE CPAP, NO MEDICAL EQUIPMENT PROVIDER PREFERENCE * List name and contact numbers for known caregivers / representatives who currently or will assist patient after discharge: ROMAN PARKER, SPOUSE, * Verbal permission to speak to the caregivers and representatives has been obtained from the patient. N/A * Community resources currently utilized None * Please name any agencies selected above. NONE * Additional services required to return to the preadmission environment? No * Can the patient safely return to the preadmission environment? Yes * Has this patient been hospitalized within the prior 30 days at any hospital? No Patient Name: SHEYLA PARKER Page [id number] at 1658 All edits/amendments must be made on the electronic document DICTATION DATE: 04/11/191656 IT SERVICE DELIVERY MANAGER: OMI 04/11/191656 RPT#: [id number] DC DATE:04/11/19 STATUS: DIS IN [facility] [address] [place] [address] END OF REPORT
--- NOTE | 2019-05-19 09:57 | HP ---
PATIENT: SHEYLA PARKER MEDICAL RECORD: [id number] ACCOUNT: [id number] LOCATION:[address] : 60 ADMISSION DATE: 04/06/19 PCP: AZAEL CONDE HISTORY AND PHYSICAL EXAMINATION REASON FOR ADMISSION: Abdominal pain. HISTORY OF PRESENT ILLNESS: The patient is a 58-year-old male with history of atrial fibrillation on Coumadin, who came to the Emergency Room because of intractable vomiting, found to have a small-bowel obstruction. He denied any recent fever. PAST MEDICAL HISTORY: Significant for AFib, dyslipidemia, essential hypertension, obesity, testicular hypofunction, ED, hyperlipidemia. PAST SURGICAL HISTORY: Abdominal hernia repair, history of kidney stones. FAMILY HISTORY: Positive for hypertension. HOME MEDICATIONS: Sotalol 160 mg b.i.d., Cozaar 100 mg a day, AndroGel 1% IM 4mg q.2 weeks, Revatio 20 mg p.r.n., Zetia 10 mg a day, HCTZ 25 mg p.o. q.a.m. REVIEW OF SYSTEMS: GENERAL: He has not felt well the last several days with vomiting and diarrhea. No fever. HEENT: No recent visual change, sinus congestion, or sore throat. RESPIRATORY: No SOB or cough. CARDIOVASCULAR: Admits to palpitations. Denies chest pain currently. No increasing peripheral edema. GASTROINTESTINAL: As above. GENITOURINARY: Nocturia once nightly. ENDOCRINE: Denies polyuria, polydipsia, heat or cold intolerance. NEUROLOGIC: Denies history of headache, history of seizures, confusion, motor or sensory deficits. PSYCHIATRIC: Denies depressed mood. PHYSICAL EXAMINATION: VITAL SIGNS: Temperature 97.3 Fahrenheit, pulse 76 and irregular, respirations are 20, blood pressure 162/94 with a sat of 97%. GENERAL: The patient is in moderate pain, but alert and oriented. HEENT: Eyes are clear. NECK: Supple, without bruits or masses. CHEST: Distant breath sounds without wheeze or rales. HEART: Regular rate without ectopy. ABDOMEN: Mildly distended with pain in the left upper quadrant and periumbilically. Some guarding and hypoactive bowel sounds. EXTREMITIES: No gross edema. NEUROLOGICAL: Oriented to person, place, and time. Cranial nerves intact. Gait was not tested. No obvious motor deficits are appreciated. LABORATORY DATA: BMP was normal. Nonfasting blood sugar was 119. Liver functions were normal. Amylase and lipase normal. White count 12,000, H&H elevated at [address] of the abdomen and pelvis revealed clear lungs, liver diffusely hypodense, diverticula of the descending and sigmoid colon, normal appendix, fluid-filled distended loops of proximal and mid HISTORY AND PHYSICAL [id number] SHEYLA PARKER A small bowel with transition point in the right upper quadrant consistent with a moderately severe small-bowel obstruction and fatty liver. ASSESSMENT: Recurrent small-bowel obstruction, remote history of hernia, fatty liver, history of atrial fibrillation, hypertension, hyperlipidemia, and obesity. PLAN: The patient will be admitted for NG gut rest. Surgical consult. Telemetry monitoring. Further workup pending clinical course. TRANSINT:[id number] Voice Confirmation ID: [id number] DOCUMENT ID: [id number] JACOB ERNST MD at 0957 CC: [id number] DICTATION DATE: 05/17/19 1325 CARDIAC CATH LAB MANAGER: 05/17/19 1353 DIS IN 04/11/19 [facility] [address] [place] [address]
== END 2019-04-11 09:00 | disposition home or self-care (01) | DRG 389 ==
LOC: D.ER 14:24 → D.M2 22:31 → D.MS 22:31 → D.M2 04-07 09:29
PROVIDERS: Family Medicine; ADMIT Family Medicine; ATTEND Family Medicine
DX: K56.600 Partial intestinal obstruction, unspecified as to cause (principal); Z68.41 Body mass index [BMI] 40.0-44.9, adult; I48.2 Chronic atrial fibrillation; Z79.01 Long term (current) use of anticoagulants; E66.01 Morbid (severe) obesity due to excess calories; I10 Essential (primary) hypertension; E87.6 Hypokalemia

== ENCOUNTER 2020-01-24 20:29 | Inpatient (IN) | payer BC ==
[~2020-01-24] VITALS: Ht 180.3 cm; Wt 130.0 kg
[~2020-01-24 20:29] MED LIST changes: +ANDROGEL5 GM IM; +ASCORBIC ACID500 MG PO; +CO Q-10100 MG PO; +COZAAR100 MG PO; +DILTIAZEM 24HR240 M4 PO; +ELIQUIS2.5 MG PO; +GALZIN50 MG PO; +KRILL OIL 1,001 EAC1 PO; +L-ARGININE500 MG PO; +MULTI-DAY VITAM1 TAB PO; +REVATIO20 MG PO
[2020-01-24] MEDS ORDERED: DILTIAZEM 24HR360 M4 PO (20:40)
[2020-01-24] MEDS ORDERED: LOSARTAN-HCTZ1 EAC1 PO (20:41)
[2020-01-24] MEDS ORDERED: FLOMAX0.4 MG PO (20:42)
[2020-01-25 00:42] VITALS: Ht 180.3 cm; Wt 130.0 kg
[2020-01-27 08:05] VITALS: BP 143/113
[2020-01-27] MEDS ORDERED: DOXYCYCLINE HY100 M2 PO ×2 (08:12→08:14)
[2020-01-27] MEDS ORDERED: OMNICEF300 MG PO (08:22)
== END 2020-01-27 10:58 | disposition home or self-care (01) | DRG 603 ==
LOC: D.ER 20:29 → D.MS 22:49 → D.SDCHOLD 01-25 15:26 → D.MS 01-25 15:27
PROVIDERS: ADMIT Family Medicine; ATTEND Family Medicine
DX: L03.116 Cellulitis of left lower limb (principal); I10 Essential (primary) hypertension; I48.91 Unspecified atrial fibrillation; R73.9 Hyperglycemia, unspecified